=== PATIENT | male | born 1990 | race Caucasian/White ===

== ENCOUNTER 2019-06-01 04:05 | Emergency (ER) | payer SELFPAY ==
[~2019-06-01] VITALS: Ht 172.7 cm; Wt 72.6 kg
[2019-06-01 04:11] VITALS: BP 124/60
== END 2019-06-01 04:19 ==
LOC: MED 04:05
DX: F10.129 Alcohol abuse with intoxication, unspecified (principal); R00.2 Palpitations
CPT/HCPCS: 99283